=== PATIENT | female | born 1990 | race Caucasian/White ===

== ENCOUNTER 2017-05-03 03:53 | Emergency (ER) | payer MEDICAID, OTHER ==
[~2017-05-03] VITALS: Ht 172.7 cm; Wt 78.0 kg
[~2017-05-03 03:53] MED LIST: ALBU6.7H INH; AZIT250T PO
[2017-05-03] MEDS ORDERED: ketorolac trometh. 30mg/ml inj. IV ONE (04:05)
[2017-05-03] MEDS ORDERED: normal saline 1000ML IV soln IVB ONE (04:05)
[2017-05-03] MEDS ORDERED: morphine 2 MG/ML inj. syringe IV ONE (04:05)
[2017-05-03] MEDS ORDERED: ondansetron/PF 4mg/2ml inj IV ONE (04:05)
[2017-05-03 04:33] LABS: BASOPHILS % (AUTO) 0.2 % (0-1); EOSINOPHILS % (AUTO) 0.2 % (0-6); HEMATOCRIT 36.8 % (35.0-45.0); HEMOGLOBIN 13.1 g/dl (12.0-16.0); LYMPHOCYTES # (AUTO) 0.5 X10'3 (1.1-4.8); MEAN CORPUSCULAR HEMOGLOBIN 30.6 PG (27.0-31.0); MEAN CORPUSCULAR HGB CONC 35.5 % (33.0-36.5); MEAN CORPUSCULAR VOLUME 86.2 FL (78-98); MEAN PLATELET VOLUME 7.5 FL (7.4-10.4); MONOCYTES # (AUTO) 0.5 X10'3 (0-0.9); NEUTROPHILS # (AUTO) 15.8 X10'3 (1.8-7.7); NEUTROPHILS % (AUTO) 93.6 % (42-75); PLATELET COUNT 259 X10'3 (140-440); RED BLOOD COUNT 4.27 X10'6 (4.20-5.60); RED CELL DISTRIBUTION WIDTH 12.2 % (11.5-14.5); WHITE BLOOD COUNT 16.9 X10'3 (4.5-11.0)
[2017-05-03 04:37] LABS: URINE HCG NEGATIVE (NEG)
[2017-05-03 04:43] LABS: CLARITY,URINE CLEAR (Clear); COLOR,URINE YELLOW (Yellow); GLUCOSE, URINE NEGATIVE (Neg); KETONES,URINE NEGATIVE (Neg); LEUKOCYTE ESTERASE ,URINE NEGATIVE (Neg); NITRITES, URINE NEGATIVE (Neg); OCCULT BLOOD,URINE NEGATIVE (Neg); PH,URINE 7.5 (4.8-8.0); PROTEIN,URINE NEGATIVE (Neg)
[2017-05-03 04:48] LABS: URINE AMPHETAMINE SCREEN NEGATIVE (Neg); URINE BARBITUATE SCREEN NEGATIVE (Neg); URINE BENZODIAZEPINES SCREEN NEGATIVE (Neg); URINE CANNABINOID SCREEN POSITIVE (Neg); URINE COCAINE SCREEN NEGATIVE (Neg); URINE METHADONE SCREEN NEGATIVE (Neg); URINE OPIATE SCREEN NEGATIVE (Neg); URINE PHENCYCLIDINE SCREEN NEGATIVE (Neg)
[2017-05-03 04:48] LABS: ALANINE AMINOTRANSFERASE 14 U/L (12-78); ALBUMIN 3.9 G/DL (3.4-5.0); ALBUMIN/GLOBULIN RATIO 1.1 (1.1-1.5); ALKALINE PHOSPHATASE 70 IU/L (46-116); ANION GAP 12 (8-16); ASPARTATE AMINO TRANSFERASE 11 U/L (10-37); BLOOD UREA NITROGEN 17 MG/DL (7-18); BUN/CREATININE RATIO 20.2 (6.6-38.0); CALCIUM 8.5 MG/DL (8.5-10.1); CHLORIDE 103 MMOL/L (99-107); CREATININE 0.84 MG/DL (0.40-0.90); GLUCOSE 123 MG/DL (70-104); LIPASE 61 U/L (73-393); POTASSIUM 3.4 MMOL/L (3.5-5.1); SODIUM 139 MMOL/L (135-145); TOTAL CARBON DIOXIDE 23.7 MMOL/L (24-32); TOTAL PROTEIN 7.5 G/DL (6.4-8.2); eGFR 83 ML/MIN
[2017-05-03 04:49] LABS: UA COLLECTION TYPE CLN CATCH MIDSTREAM
[2017-05-03 04:58] LABS: PLATELET ESTIMATE NORMAL; TOTAL CELLS COUNTED 100
[2017-05-03] MEDS ORDERED: acetaminophen 325mg tablet PO STA (06:46)
[2017-05-03] MEDS ORDERED: normal saline 1000ML IV soln IV ONE (06:50)
[2017-05-03] MEDS ORDERED: CefTRIAXone 2gm/NS 100ml IVPB 100 ML IV ONE (06:50)
[2017-05-03] MEDS ORDERED: AZI25OT PO (07:48)
[2017-05-03] MEDS ORDERED: HYDR-565 PO (07:48)
[2017-05-03 07:53] VITALS: BP 110/76
== END 2017-05-03 08:07 | disposition home or self-care (01) ==
LOC: ER 03:53
DX: J18.1 Lobar pneumonia, unspecified organism (principal)
CPT/HCPCS: 36415; 71045; 74176; 80053; 80305; 81003; 81025; 83690; 84145; 85025; 87502; 87503; 96365; 96375; 99285; J0696; J1885; J2270; J2405; J7030; 96374

== ENCOUNTER 2018-11-16 17:22 | Emergency (ER) | payer MEDICAID ==
[~2018-11-16] VITALS: Ht 172.7 cm; Wt 75.0 kg
[~2018-11-16 17:22] MED LIST changes: -ALBU6.7H INH; +ALBU6.7H9 INH
[2018-11-16 17:43] VITALS: BP 128/88
--- NOTE | 2018-11-16 17:55 | NUR ---
POISON CONTROL CONTACTED AND REVIEWED CASE OF PT EXPOSURE. RECEIVED RECOMMENDATIONS FROM [facility] TO TX SXS OF CHATTERJEE AND NAUSEA (TYLENOL, ETC.) BUT NO MEDICAL INTERVENTIONS REQUIRED PT WAS OUTDOORS AND WITH SHORT EXPOSURE AND HOW LONG IT HAD ALREADY BEEN SINCE. PT RECOMMENDATIONS SHARED WITH DR. JACOB.
[2018-11-16] MEDS ORDERED: ibuprofen tablet 400 MG TABLET PO ONE (18:10)
[2018-11-16] MEDS: ondansetron 4mg rapidly disintigrating tab PO ONE ×2 (18:26→18:29)
== END 2018-11-16 18:34 | disposition home or self-care (01) ==
LOC: ER 17:23
DX: T59.891A Toxic effect of other specified gases, fumes and vapors, accidental (unintentional), initial encounter (principal); R51 Headache; R42 Dizziness and giddiness; F12.90 Cannabis use, unspecified, uncomplicated; Z79.899 Other long term (current) drug therapy; Y92.89 Other specified places as the place of occurrence of the external cause
CPT/HCPCS: 99283

== ENCOUNTER 2020-02-06 19:25 | Emergency (ER) | payer MEDICAID ==
[~2020-02-06] VITALS: Ht 175.3 cm; Wt 81.8 kg
[2020-02-06 19:31] VITALS: BP 141/78
== END 2020-02-06 20:11 | disposition home or self-care (01) ==
LOC: ER 19:25
DX: J02.9 Acute pharyngitis, unspecified (principal); Z20.828 Contact with and (suspected) exposure to other viral communicable diseases; F12.90 Cannabis use, unspecified, uncomplicated; Z79.2 Long term (current) use of antibiotics; Z79.899 Other long term (current) drug therapy
CPT/HCPCS: 36415; 87635; 99283

== ENCOUNTER 2021-08-11 13:56 | Emergency (ER) | payer MEDICAID ==
[~2021-08-11] VITALS: Ht 175.3 cm; Wt 160.0 kg
[2021-08-11] MEDS ORDERED: dexamethasone sod phosphate 10mg/ml inj IV STA (14:47)
[2021-08-11] MEDS ORDERED: ketorolac tromethamine 15mg/ml inj. IV ONE (14:50)
[2021-08-11] MEDS ORDERED: normal saline 1000ml 1,000 ML IV ONE (14:50)
[2021-08-11] MEDS ORDERED: CLINDAmcin 900mg/NS 50ml IVPB 50 ML IV ONE (14:50)
[2021-08-11 15:20] LABS: BASOPHILS % (AUTO) 0.4 % (0-1); EOSINOPHILS # (AUTO) 0.1 X10'3 (0-0.9); LYMPHOCYTES # (AUTO) 1.7 X10'3 (1.1-4.8); MEAN CORPUSCULAR HEMOGLOBIN 32.5 PG (27.0-31.0); MEAN CORPUSCULAR HGB CONC 35.2 g/dL (33.0-36.5); MEAN CORPUSCULAR VOLUME 92.5 FL (78-98); MEAN PLATELET VOLUME 7.5 FL (7.4-10.4); MONOCYTES # (AUTO) 0.7 X10'3 (0-0.9); MONOCYTES % (AUTO) 8.1 % (2-12); NEUTROPHILS # (AUTO) 6.3 X10'3 (1.8-7.7); NEUTROPHILS % (AUTO) 71.5 % (42-75); PLATELET COUNT 274 X10'3 (140-440); RED CELL DISTRIBUTION WIDTH 12.3 % (11.5-14.5); WHITE BLOOD COUNT 8.8 X10'3 (4.5-11.0)
[2021-08-11 15:32] LABS: ALANINE AMINOTRANSFERASE 13 U/L (12-78); ALBUMIN 4.1 G/DL (3.4-5.0); ALBUMIN/GLOBULIN RATIO 1.1 (1.1-1.5); ALKALINE PHOSPHATASE 69 IU/L (46-116); ANION GAP 9 (8-16); ASPARTATE AMINO TRANSFERASE 15 U/L (10-37); BILIRUBIN,TOTAL 0.9 MG/DL (0.1-1.0); BLOOD UREA NITROGEN 10 MG/DL (7-18); CALCIUM 8.5 MG/DL (8.5-10.1); CHLORIDE 106 MMOL/L (99-107); CREATININE 0.77 MG/DL (0.40-0.90); GLUCOSE 105 MG/DL (70-104); POTASSIUM 3.8 MMOL/L (3.5-5.1); SODIUM 140 MMOL/L (135-145); TOTAL PROTEIN 7.7 G/DL (6.4-8.2); eGFR 89 ML/MIN
[2021-08-11] MEDS ORDERED: PRED20TA PO (16:02)
[2021-08-11] MEDS ORDERED: CLIN150C8 PO (16:02)
[2021-08-11] MEDS ORDERED: IBUP-1984 PO (16:02)
[2021-08-11] MEDS ORDERED: VALA500T PO (16:10)
[2021-08-11 16:12] VITALS: BP 140/85
== END 2021-08-11 17:06 | disposition home or self-care (01) ==
LOC: ER 13:56
DX: K04.7 Periapical abscess without sinus (principal); Z79.899 Other long term (current) drug therapy
CPT/HCPCS: 36415; 80053; 85025; 96365; 96375; 99284; J1100; J1885; J3490; J7030

== ENCOUNTER 2022-12-25 13:36 | Emergency (ER) | payer MEDICAID ==
[~2022-12-25] VITALS: Ht 175.3 cm; Wt 76.0 kg
[~2022-12-25 13:36] MED LIST changes: +ALBU6.7H14 INH; -ALBU6.7H9 INH; +CLIN-214 PO; +VALA500T PO
[2022-12-25 14:00] LABS: BASOPHILS # (AUTO) 0.1 X10'3 (0-0.2); BASOPHILS % (AUTO) 0.6 % (0-1); EOSINOPHILS # (AUTO) 0.1 X10'3 (0-0.9); EOSINOPHILS % (AUTO) 1.1 % (0-6); HEMATOCRIT 43.9 % (35.0-45.0); HEMOGLOBIN 15.2 g/dl (12.0-16.0); LYMPHOCYTES # (AUTO) 2.3 X10'3 (1.1-4.8); LYMPHOCYTES % (AUTO) 27.4 % (21-51); MEAN CORPUSCULAR HEMOGLOBIN 31.8 PG (27.0-31.0); MEAN CORPUSCULAR HGB CONC 34.7 g/dL (33.0-36.5); MEAN CORPUSCULAR VOLUME 91.6 FL (78-98); MEAN PLATELET VOLUME 8.1 FL (7.4-10.4); MONOCYTES # (AUTO) 0.7 X10'3 (0-0.9); MONOCYTES % (AUTO) 8.3 % (2-12); NEUTROPHILS # (AUTO) 5.2 X10'3 (1.8-7.7); NEUTROPHILS % (AUTO) 62.6 % (42-75); PLATELET COUNT 279 X10'3 (140-440); RED BLOOD COUNT 4.79 X10'6 (4.20-5.60); RED CELL DISTRIBUTION WIDTH 12.5 % (11.5-14.5); WHITE BLOOD COUNT 8.3 X10'3 (4.5-11.0)
[2022-12-25 14:15] LABS: ALANINE AMINOTRANSFERASE 28 U/L (12-78); ALBUMIN 4.2 G/DL (3.4-5.0); ALBUMIN/GLOBULIN RATIO 1.1 (1.1-1.5); ALKALINE PHOSPHATASE 71 IU/L (46-116); ANION GAP 2 (8-16); ASPARTATE AMINO TRANSFERASE 17 U/L (10-37); BILIRUBIN,TOTAL 0.8 MG/DL (0.1-1.0); BLOOD UREA NITROGEN 7 MG/DL (7-18); BUN/CREATININE RATIO 8.3 (10.0-20.0); CALCIUM 8.9 MG/DL (8.5-10.1); CHLORIDE 104 MMOL/L (99-107); CREATININE 0.84 MG/DL (0.40-0.90); GLUCOSE 107 MG/DL (70-104); POTASSIUM 3.5 MMOL/L (3.5-5.1); SODIUM 137 MMOL/L (135-145); TOTAL CARBON DIOXIDE 31.5 MMOL/L (24-32); eCRCL 101 ML/MIN; eGFR 79 ML/MIN
[2022-12-25 14:22] LABS: PRO BRAIN NATRIURETIC PEPTIDE 114 PG/ML (0-125)
[2022-12-25 16:38] VITALS: BP 108/65; PULSE 61; RESP 16; TEMP 98.8; O2SAT 99
== END 2022-12-25 16:41 | disposition home or self-care (01) ==
LOC: ER 13:36
DX: F41.1 Generalized anxiety disorder (principal); R55 Syncope and collapse; Z79.899 Other long term (current) drug therapy
CPT/HCPCS: 36415; 80053; 83880; 84484; 85025; 93005; 99284

== ENCOUNTER 2023-06-29 09:46 | Outpatient (CLI) | payer MEDICAID | END 2023-06-29 23:59 | disposition home or self-care (01) | LOC: RAD 09:46 | PROVIDERS: ATTEND Nurse Practitioner | DX: M25.462 Effusion, left knee (principal); M25.442 Effusion, left hand | CPT/HCPCS: 73130; 73564 ==